=== PATIENT | female | born 1930 | race Caucasian/White ===

== ENCOUNTER 2017-02-11 06:56 | Day surgery (SDC) | payer MEDICARE ==
--- NOTE | 2017-01-22 07:57 | HP ---
HISTORY AND PHYSICAL: DATE OF SURGERY: 02/11/17 DATE OF OFFICE VISIT: 01/18/17 ATTENDING SURGEON: Earline Schumacher MD * (dictated by TERI Hendrix) PROCEDURE: Left carpal tunnel release. CHIEF COMPLAINT: Left hand pain, numbness, and tingling. HISTORY OF PRESENT ILLNESS: Ms. Garcia is an 86-year-old female following up today with continued complaints of left hand numbness and tingling involving the thumb, index, and long finger. An EMG nerve conduction study showed severe left carpal tunnel syndrome. She has elected to proceed with surgery. PAST MEDICAL HISTORY: Sleep apnea, diabetes, hypertension, AFib. PAST SURGICAL HISTORY: Hysterectomy, skin grafting, left knee arthroscopy, left total knee arthroplasty, right carpal tunnel release, right total hip arthroplasty, laparoscopic removal of the cyst, cataract removal, and left wrist synovectomy. CURRENT MEDICATIONS: 1. Lasix. 2. Lisinopril 5 mg every day. 3. Carvedilol 12.5 mg daily. 4. Eliquis 5 mg daily. 5. Folic acid. 6. Magnesium. 7. Calcium with vitamin D. 8. Spironolactone 25 mg daily. 9. Digoxin 125 mcg daily. 10. Metformin 750 mg twice a day. ALLERGIES: To PENICILLIN, FOSAMAX, BACTRIM, and CIPROFLOXACIN. FAMILY HISTORY: Of breast cancer. SOCIAL HISTORY: She is an 86-year-old female, she lives with her daughter. She does not smoke or use drugs. She uses alcohol occasionally. REVIEW OF SYSTEMS: A complete 14-point review of systems reviewed with the patient and is positive for diabetes. PHYSICAL EXAMINATION GENERAL: She is well developed, well nourished, in no acute distress. VITAL SIGNS: She stands 5 feet 5 inches tall, weighs 135 pounds. Her blood pressure is 127/76 and her heart rate is 60. HEENT: Normocephalic, atraumatic. NECK: Supple. No palpable nodes. PULMONARY: Lungs are clear to auscultation bilaterally. CARDIO: Regular rate and rhythm. Strong S1, S2. ABDOMEN: Soft, nontender, nondistended. NEUROLOGIC: She is alert and oriented x3. Cranial nerves II through XII are intact. MUSCULOSKELETAL: Left upper extremity, the skin is intact. There are no open wounds or abrasions. She has positive Tinel's at the left wrist. There is some mild thenar atrophy, diminished sensation to pinprick and light touch over the left thumb, index, long finger. She has 2+ distal radius pulses. ASSESSMENT AND PLAN: Ms. Garcia is an 86-year-old female with continued complaints of numbness and tingling of the left thumb, index, and long finger. EMG showed severe carpal tunnel syndrome. She has elected to proceed with a left carpal tunnel release, which is scheduled on 02/11/[address] Schumacher discussed the risks and benefits of the surgery at today's visit. All of her questions were answered. She will see Dr. Schumacher back in 10 to 14 days after the surgery. TERI HENDRIX [id number]/CPS #: [id number] MTDD
[~2017-02-11 06:56] MED LIST: Buffered Lidocaine 0.9% SYRIN* 5 ML/SYR SYRINGE INTRADERM ONE; Famotidine IV* 10 MG/ML 2 ML (20 mg) IV ONE
[2017-02-11] MEDS ORDERED: Buffered Lidocaine 0.9% SYRIN* 5 ML/SYR SYRINGE ONE (06:57)
[2017-02-11] MEDS ORDERED: Famotidine IV* 10 MG/ML 2 ML (20 mg) ONE (06:57)
[2017-02-11] MEDS ORDERED: Clindamycin 900 MG IVPREMIX(* 900 MG/50 ML SDV IV ONE (06:57)
[2017-02-11] MEDS ORDERED: Lidocaine 1% INJ* 10 MG/ML 30 ML SDV ONE (06:58)
[2017-02-11] MEDS ORDERED: Bupivacaine 0.5% SDV PF* 30 ML VIAL ONE (06:58)
[2017-02-11] MEDS ORDERED: fentaNYL* 50 MCG/ML 2 ML VIAL (100 MCG VIAL) ONE (08:13)
[2017-02-11] MEDS ORDERED: Propofol* 10 MG/ML 20 ML BTL IV PUSH ONE (08:13)
[2017-02-11] MEDS ORDERED: Dexamethasone IV* 4 MG/ML 1 ML (4 MG) ONE (08:13)
[2017-02-11] MEDS ORDERED: Ondansetron INJ* 2 MG/ML VIAL ONE (08:13)
[2017-02-11] MEDS ORDERED: Ketorolac INJ* 30 MG/ML 1 ML VIAL ONE (08:13)
[2017-02-11] MEDS ORDERED: Midazolam* 1 MG/ML 5 ML VIAL (5 MG) ONE (08:13)
[2017-02-11] MEDS ORDERED: Lidocaine 2% PF * 5 ML VIAL ONE (08:13)
[2017-02-11] MEDS ORDERED: DiMENhydriNATE IV* 50 MG/ML VIAL IV PUSH PRN (09:29)
[2017-02-11] MEDS ORDERED: Acetaminophen TAB* 325 MG PO PRN (09:29)
[2017-02-11 10:08] VITALS: BP 123/81
--- NOTE | 2017-02-12 08:36 | OP ---
DATE OF OPERATION: 02/11/17 [facility] DATE OF : 31 SURGEON: Earline Schumacher MD CHRONIC SPECIALIST: TERI Day. Ms. Cardenas did help throughout the procedure with preparation of the wrist, wound retraction, and wound closure. ANESTHESIOLOGIST: Dr. Mejia. ANESTHESIA: Low MAC and regional with 0.5% Marcaine. PRE-OP DIAGNOSIS: Left carpal tunnel syndrome at the wrist with median nerve compression. POST-OP DIAGNOSIS: Left carpal tunnel syndrome at the wrist with median nerve compression. OPERATIVE PROCEDURE: Left wrist open carpal tunnel release. ESTIMATED BLOOD LOSS: Less than 25 cc. COMPLICATIONS: None. SPECIMEN: None. BRIEF HISTORY/INDICATION: Ms. Garcia is an 86-year-old female with years of increasingly severe left wrist pain and hand numbness. She underwent EMG nerve conduction study that showed severe carpal tunnel syndrome at the wrist. She failed conservative treatment with wrist night splinting and activity modification. Due to significant pain and numbness in the median nerve distribution, she elected to undergo open carpal tunnel release at the left wrist. Informed consent was obtained from the patient. She understood the risks of the procedure included but were not limited to bleeding, infection, damage to nearby structures, continued pain, need for further surgery, stroke, heart attack, blood clot, and . She wished to proceed. INTRAOPERATIVE FINDINGS: Intraoperatively, the patient had fibrosed transverse carpal tunnel ligament with direct compression on the median nerve. No other abnormalities were encountered. DESCRIPTION OF PROCEDURE: Ms. Garcia is an 86-year-old female who was identified in the preanesthesia unit. Her left upper extremity was marked as the correct operative side. Informed consent was signed and placed in the chart. Patient was taken to the operating room and placed under low MAC anesthesia. Left upper extremity was prepped and draped in the usual sterile fashion. Preop time-out was made to correctly identify the patient's side and site. Appropriate perioperative antibiotics were given within one hour of incision. Six cc of 0.5% Marcaine was used for anesthesia right at the surgical site. Next, the tourniquet was inflated. Tourniquet time for this procedure was 5 minutes. A 15-blade was used to make a 3 cm incision along the thenar crease in line with the fourth metacarpal. Tenotomies were used to dissect down to the transverse palmar fascia. A 10-blade was used to incise the palmar fascia in line with the skin incision. Tenotomies were used to dissect down to the transverse carpal ligament. This was thickened and released in line with the skin incision using a 15-blade in a meticulous fashion. Median nerve was identified and clearly had been compressed by the transverse carpal ligament at this anatomic position. Tenotomies were used both proximally and distally to ensure that there was no further entrapment of the median nerve. The incision was copiously irrigated with sterile saline. Tourniquet was deflated at 5 minutes. The incision was closed using an interrupted 3-0 nylon suture in a vertical mattress fashion. Sterile Xeroform, 4x4's, and Webril were used to cover the incision. A volar plaster slab was placed with an Bhavin wrap over this. Patient's anesthesia was reversed without difficulty. She had full motion of her thumb and fingers after the procedure. She is discharged to home with followup in two weeks' time. [id number]/[facility] #: [id number] SHANELLE
== END 2017-02-11 10:31 | disposition home or self-care (01) ==
LOC: OR 06:56
PROVIDERS: ATTEND Orthopaedic Surgery Adult Reconstructive Orthopaedic Surgery
DX: G56.02 Carpal tunnel syndrome, left upper limb (principal); G47.30 Sleep apnea, unspecified; E11.9 Type 2 diabetes mellitus without complications; I10 Essential (primary) hypertension; I48.91 Unspecified atrial fibrillation; J44.9 Chronic obstructive pulmonary disease, unspecified; Z79.84 Long term (current) use of oral hypoglycemic drugs; Z79.01 Long term (current) use of anticoagulants; Z88.1 Allergy status to other antibiotic agents; Z88.0 Allergy status to penicillin; Z87.891 Personal history of nicotine dependence
CPT/HCPCS: J1100; J1885; J2001; J2250; J2405; J2704; J3010

== ENCOUNTER 2017-05-31 19:42 | Emergency (ER) | payer MEDICARE ==
[2017-05-31] MEDS ORDERED: Oxymetazoline 0.05% NASAL SPR* 15 ML BTL RIGHT NARE ONE (21:31)
--- NOTE | 2017-05-31 21:34 | ED ---
Throat Pain/Nasal Congestion - HPI Summary HPI Summary: 87F presents with bleeding from right nares for an hour. She states it stopped on the way here and hasn't bleed since for two hours. She is on eliguis. She denies any recent trauma. She denies any blood coming out of other nostril. She states was two large blood clots came out. She denies any fever. - History of Current Complaint Chief Complaint: EDEpistaxis Time Seen by Provider: 05/31/17 21:16 - Allergies/Home Medications Allergies/Adverse Reactions: Allergies Allergy/AdvReac Type Severity Reaction Status Date / Time Alendronate [From Fosamax] Allergy SEVERE Verified 05/31/17 19:50 UPSET Ciprofloxacin Allergy Unknown Verified 05/31/17 19:50 Reaction Details Penicillins [PCN] Allergy Unknown Verified 05/31/17 19:50 Reaction Details Sulfamethoxazole Allergy HIGH FEVER Verified 05/31/17 19:50 w/Trimethoprim [From Bactrim] LOBSTER Allergy SEVERE N/V Uncoded 05/31/17 19:50 PMH/Surg Hx/FS Hx/Imm Hx Endocrine/Hematology History: Reports: Hx Diabetes - TYPE II - ON ORAL MEDICATION FOR, Hx Anemia Cardiovascular History: Reports: Hx Hypertension - ON MEDICATION FOR, 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, Other Cardiovascular Problems/Disorders - ATRIAL FIBRILLATION/ RIGHT BUNDLE BRANCH BLOCK Comment Only: Hx Congestive Heart Failure - RIGHT HEART FAILURE Respiratory History: Reports: Hx Sleep Apnea - USES A DENTAL APPLIANCE Musculoskeletal History: Reports: Hx Arthritis - "ALL OVER", Hx Orthopedic Injury - L knee replacement June 2014, Hx Tendonitis - HISTORY OF ELBOW, Other Musculoskeletal History - carpal tunnel r wrist, Sensory History: Reports: Hx Cataracts - BILATERAL, Hx Contacts or Glasses - GLASSES Denies: Hx Hearing Aid Opthamlomology History: Reports: Hx Cataracts - BILATERAL, Hx Contacts or Glasses - GLASSES Psychiatric History: Reports: Hx Anxiety - AFTER ANESTHESIA X 1 - Cancer History Cancer Type, Location and Year: cervical ca - Surgical History Surgery Procedure, Year, and Place: [id number]- SKIN GRAFTS- [facility]. BONE GRAFT LEFT LOWER [id number]. SKIN GRAFTS- [id number]. REMOVAL OF CYST FROM ABDOMEN - [id number]. CARPAL TUNNEL RELEASE RIGHT [id number]. 04/14- [place] [place] [facility] [id number] WRIST AT [facility]. L knee replacement- 06/2014 Hx Anesthesia Reactions: Yes - STATES FELT VERY TENSE-AFTER SURGERYFELT LIKE THROAT CLOSING UP - Immunization History Date of Influenza Vaccine: 2013 Infectious Disease History: No Infectious Disease History: Denies: Traveled Outside the [place] in Last 30 Days - Family History Known Family History: Positive: Hypertension - Social History Alcohol Use: Rare Substance Use Type: Reports: None Hx Tobacco Use: No Smoking Status (MU): Former Smoker Amount Used/How Often: <1PPD X 15 YEARS Have You Smoked in the Last Year: No Review of Systems Negative: Fever Positive: Epistaxis Negative: Chest Pain Negative: Shortness Of Breath All Other Systems Reviewed And Are Negative: Yes Physical Exam Triage Information Reviewed: Yes Vital Signs On Initial Exam: Initial Vitals Temp Pulse Resp BP Pulse Ox 99.0 F 69 18 146/77 98 05/31/17 19:46 05/31/17 19:46 05/31/17 19:46 05/31/17 19:46 05/31/17 19:46 Vital Signs Reviewed: Yes Appearance: Positive: Well-Appearing Skin: Positive: Warm, Dry Head/Face: Positive: Normal Head/Face Inspection Eyes: Positive: Normal, EOMI, AMILCAR, Conjunctiva Clear ENT: Positive: Pharynx normal, TMs normal, Other - no active bleeding right nares, Respiratory/Lung Sounds: Positive: Clear to Auscultation, Breath Sounds Present Cardiovascular: Positive: Normal, RRR Musculoskeletal: Positive: Normal Neurological: Positive: Normal Psychiatric: Positive: Normal Diagnostics - Vital Signs Vital Signs Temp Pulse Resp BP Pulse Ox 05/31/17 19:46 99.0 F 69 18 146/77 98 - Laboratory Lab Statement: Any lab studies that have been ordered have been reviewed, and results considered in the medical decision making process. EENT Course/Dx - Course Course Of Treatment: 87F presents with bleeding from right nares for an hour. She states it stopped on the way here and hasn't bleed since for two hours. She is on eliguis. She denies any recent trauma. She denies any blood coming out of other nostril. She states was two large blood clots came out. She denies any fever. on exam no active bleeding. see a capillary that could cauterize but patient states would just like to go and return if bleed returns. discharged with afrin that can place in nose if bleeding return to try and stop it on own. gave referral to ENT as patient that follow up with as has had cautery done in past. patient understand and agrees with plan. - Differential Diagnoses Differential Diagnoses: Epistaxis, URI/Bronchitis - Diagnoses Provider Diagnoses: Epistaxis Discharge - Discharge Plan Condition: Good Disposition: HOME Patient Education Materials: Nosebleed (ED) Referrals: Barbara Cordova MD [Primary Care Provider] - Yoni Hartman MD [Medical Doctor] - Additional Instructions: Place afrin on cotton ball and place in nares for 20 mins along with holding pressure, if bleeding does not stop return to ED Follow up with ENT Return to ED if develop any new or worsening symptoms
[2017-05-31 22:04] VITALS: BP 121/60
== END 2017-05-31 22:03 | disposition home or self-care (01) ==
LOC: ED 19:42
DX: R04.0 Epistaxis (principal); E11.9 Type 2 diabetes mellitus without complications; Z79.84 Long term (current) use of oral hypoglycemic drugs; I10 Essential (primary) hypertension; I48.91 Unspecified atrial fibrillation; Z79.01 Long term (current) use of anticoagulants; I45.10 Unspecified right bundle-branch block; Z96.652 Presence of left artificial knee joint; Z88.1 Allergy status to other antibiotic agents; Z88.0 Allergy status to penicillin; Z88.2 Allergy status to sulfonamides; Z87.891 Personal history of nicotine dependence
CPT/HCPCS: 99281; A9270-GY

== ENCOUNTER 2019-08-01 17:07 | Emergency (ER) | payer MEDICARE ==
--- OUTSIDE RECORDS SUMMARY | 2019-08-01 17:29 | XMS REPORT | Summary of Care ---
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 Reason for Visit Reason Comments Follow Up 4 (now 8)month follow up on DM, HTN & Afib Diabetes Hypertension Atrial Fibrillation Encounter Details Date Type Department Care Team Description 06/23/2019 Office Visit [place] [facility] Barbara Cordova MD Diabetes mellitus without complication (HCC) (Primary Dx); Medicine [address] Lipid disorder; [address] [place] [address] Essential hypertension; [place] [address] Permanent atrial fibrillation; [phone] Breast neoplasm, Tis (DCIS), left Allergies Active Allergy Reactions Severity Noted Date Comments Sulfamethoxazole Dermatologic Reaction 08/30/2014 Rash / fever/ W/Trimethoprim diarrhea Ciprofloxacin-Ciproflox Unknown Reaction 09/06/2017 Thinks it made Hcl her sick Fosamax GI Reaction 06/07/2013 Stomach ache - general malaise Penicillin G Potassium 10/12/2007 documented as of this encounter (statuses as of 06/23/2019) Medications Medication Sig Dispensed Refills Start Date End Date Status magnesium oxide Take 1 Tab by 0 Active (MAG-OX) 400 MG PO mouth DAILY. TABS CALCIUM + D PO Take 1 Tab by 0 Active mouth DAILY. Multiple Take by 0 Active Vitamins-Minerals mouth TWICE (PRESERVISION AREDS DAILY. PO) Vitamin Mixture Take by 0 Active (MARK-C PO) mouth DAILY. anastrozole Take 1 Tab by 90 Tab 3 04/08/2018 Active (ARIMIDEX) 1 MG mouth DAILY. Oral Tab ELIQUIS 5 MG Oral TAKE ONE 180 Tab 3 07/12/2018 Active Tab TABLET BY MOUTH TWICE DAILY foliC acid 1 MG TAKE 1 TABLET 90 Tab 3 08/08/2018 Active Oral BY MOUTH ONCE TabIndications: DAILY Preventative health care lisinopril TAKE 1 TABLET 90 Tab 3 01/09/2019 Active (PRINIVIL, ZESTRIL) BY MOUTH ONCE 5 MG Oral DAILY TabIndications: Paroxysmal atrial fibrillation (HCC) metFORMIN HCL 750 Take 1 Tab by 180 Tab 3 02/10/2019 Active MG Oral TABLET SR mouth TWO 24 HRIndications: TIMES DAILY Diabetes mellitus BEFORE MEALS. without complication (HCC) carvedilol (COREG) Take 1 Tab by 180 Tab 3 04/10/2019 Active 12.5 MG Oral mouth TWICE TabIndications: DAILY. Essential hypertension torsemide (DEMADEX) TAKE 2 360 Tab 3 05/08/2019 Active 10 MG Oral TABLETS BY TabIndications: MOUTH TWICE Right ventricular DAILY IN THE enlargement MORNING AND AT NOON Glucose Blood 1 Each by 200 Strip 3 06/06/2019 Active (FREESTYLE TEST Topical route STRIPS) In Vitro TWICE DAILY. StripIndications: Diabetes mellitus without complication (HCC) spironolactone Take 1 Tab by 90 Tab 3 06/12/2019 Active (ALDACTONE) 25 MG mouth DAILY. Oral TabIndications: Right heart failure (HCC) Lancets (1ST TIER Use bid 100 Each 0 06/19/2019 Active UNILET COMFORTOUCH) Does not apply MiscIndications: Diabetes mellitus without complication (HCC) Semaglutide,0.25 or Inject 1 Appl 1 Pre-filled 3 06/23/2019 Active 0.5MG/DOS, beneath the Pen Syringe (OZEMPIC, 0.25 OR skin EVERY 7 0.5 MG/DOSE,) 2 DAYS. MG/1.5ML increast to Subcutaneous 0.5 mg after Solution 1 month Pen-injectorIndicat ions: Diabetes mellitus without complication (HCC) metFORMIN HCL 750 TAKE 1 TABLET 180 Tab 3 05/08/2019 06/23/19 Discontinued MG Oral TABLET SR BY MOUTH 20 24 HR TWICE DAILY documented as of this encounter (statuses as of 06/23/2019) Active Problems Problem Noted Date Breast neoplasm, Tis (DCIS), left 08/17/2017 Overview: Added automatically from request for surgery [id number] Current use of terminal operator anticoagulation 07/19/2017 YOSVANY (obstructive sleep apnea) 04/09/2016 Overview: Wearing dental appliance Aspiration into respiratory tract 11/15/2015 Non-rheumatic tricuspid valve insufficiency 08/19/2015 Liver nodule 06/24/2015 Overview: 02/02 - Abnormal appearance of liver Diabetes mellitus without complication 06/24/2015 Overview: Care plan done 10/03/2014 Right heart failure 02/18/2015 HTN (hypertension) 01/14/2015 Macular degeneration 08/01/2012 Overview: Both eyes. 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 Replaced inactive diagnosis Varicose veins of legs 10/12/2007 Chronic Right Bundle Branch Block 10/12/2007 History of Carpal Tunnel Syndrome 10/12/2007 Overview: Patient had surgery. Osteopenia 10/12/2007 documented as of this encounter (statuses as of 06/23/2019) Immunizations Name Administration Dates Next Due Influenza (IM) Preservative Free 03/23/2014, 04/03/2013, 05/09/2012, 03/26/2009, 04/05/2008 Influenza Vaccine High Dose 03/09/2019, 03/23/2018, 04/11/2017, 03/09/2016, 03/22/2015 Influenza Vaccine Whole 04/05/2006 PNEUMOCOCCAL POLYSACCHARIDE VACCINE 03/23/2014 Pneumococcal Conjugate(13 Valent) 05/11/2016 TDAP Vaccine 02/03/2010 documented as of this encounter Social History Tobacco Use Types Packs/Day Years Used Date Former Smoker Quit: 06/21/1964 Smokeless Tobacco: Never Used Alcohol Use Drinks/Week oz/Week Comments Yes 0 Standard drinks or equivalent 0.0 RARE Sex Assigned at Date Recorded Not on file Job Start Date Occupation Industry Not on file Not on file Not on file Travel History Travel Start Travel End No recent travel history available. documented as of this encounter Last Filed Vital Signs Vital Sign Reading Time Taken Comments Blood Pressure 104/84 06/23/2019 3:22 PM EST Pulse 77 06/23/2019 3:22 PM EST Temperature - - Respiratory Rate - - Oxygen Saturation 95% 06/23/2019 3:22 PM EST Inhaled Oxygen Concentration - - Weight 68.4 kg (150 lb 14.4 oz) 06/23/2019 3:22 PM EST Height 167.6 cm (5' 6") 06/23/2019 3:22 PM EST Body Mass Index 24.36 06/23/2019 3:22 PM EST documented in this encounter Patient Instructions Patient InstructionsBarbara Cordova MD - 06/23/2019 3:00 PM ESTPlan Add ozempic on to the metformin Start 0.25 mg for 4 weeks then 0.5 mg - continue on 0.5mg util we meet again - You are eating too many carbs - Kick the carbs out of Your diet - documented in this encounter Progress Notes Barbara Cordova MD - 06/23/2019 3:00 PM EST NAME:Marci Garcia [birth year] ENC Date: 06/23/2019 CC: Chief Complaint Patient presents with Follow Up 4 (now 8)month follow up on DM, HTN & Afib Diabetes Hypertension Atrial Fibrillation Marci Garcia is a 89-y.o. female Accompanied by daughter Doing well Denies any shortness of breath / pedal edema / digestive problems Here for interval follow up Of diabetes 2 metformin daily only - Has been eating bread / other carbs- 2. htn 3. Chronic afib Current Outpatient Medications Medication Sig anastrozole (ARIMIDEX) 1 MG Oral Tab Take 1 Tab by mouth DAILY. CALCIUM + D PO Take 1 Tab by mouth DAILY. carvedilol (COREG) 12.5 MG Oral Tab Take 1 Tab by mouth TWICE DAILY. ELIQUIS 5 MG Oral Tab TAKE ONE TABLET BY MOUTH TWICE DAILY foliC acid 1 MG Oral Tab TAKE 1 TABLET BY MOUTH ONCE DAILY Glucose Blood (FREESTYLE TEST STRIPS) In Vitro Strip 1 Each by Topical route TWICE DAILY. Lancets (1ST TIER UNILET COMFORTOUCH) Does not apply Misc Use bid lisinopril (PRINIVIL, ZESTRIL) 5 MG Oral Tab TAKE 1 TABLET BY MOUTH ONCE DAILY magnesium oxide (MAG-OX) 400 MG PO TABS Take 1 Tab by mouth DAILY. metFORMIN HCL 750 MG Oral TABLET SR 24 HR Take 1 Tab by mouth TWO TIMES DAILY BEFORE MEALS. Multiple Vitamins-Minerals (PRESERVISION AREDS PO) Take by mouth TWICE DAILY. Semaglutide,0.25 or 0.5MG/DOS, (OZEMPIC, 0.25 OR 0.5 MG/DOSE,) 2 MG/ 1.5ML Subcutaneous Solution Pen-injector Inject 1 Appl beneath the skin EVERY 7 DAYS. increast to 0.5 mg after 1 month spironolactone (ALDACTONE) 25 MG Oral Tab Take 1 Tab by mouth DAILY. torsemide (DEMADEX) 10 MG Oral Tab TAKE 2 TABLETS BY MOUTH TWICE DAILY IN THE MORNING AND AT NOON Vitamin Mixture (MARK-C PO) Take by mouth DAILY. No current facility-administered medications for this visit. Patient Active Problem List Diagnosis Date Noted Breast neoplasm, Tis (DCIS), left 08/17/2017 Priority: High Added automatically from request for surgery [id number] Diabetes mellitus without complication (HCC) 06/24/2015 Priority: High Care plan done 10/03/2014 Right heart failure (HCC) 02/18/2015 Priority: High Atrial fibrillation 10/12/2007 Priority: High Following with Dr Gilbert - Enlarged RV and significant TRICUSPID REGURITATION -etiology? Sleep apnea vs other Acquired absence of uterus 10/21/2007 Priority: Low Cancer in situ; ovaries removed Current use of long-term anticoagulation 07/19/2017 YOSVANY (obstructive sleep apnea) 04/09/2016 Wearing dental appliance Aspiration into respiratory tract 11/15/2015 Non-rheumatic tricuspid valve insufficiency 08/19/2015 Liver nodule 06/24/201502/02 - Abnormal appearance of liver HTN (hypertension) 01/14/2015 Macular degeneration 08/01/2012 Both eyes. 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 Replaced inactive diagnosis Varicose veins of legs 10/12/2007 Chronic Right Bundle Branch Block 10/12/2007 History of Carpal Tunnel Syndrome 10/12/2007 Patient had surgery. Osteopenia 10/12/2007 Family History Problem Relation Age of Onset Heart Mother Cancer Father Breast Cancer Sister late 70s Breast Cancer Daughter late 30s No cardiopulmonary symptoms No upper or lower GI complaints No urinary tract symptoms. No bruising/ bleeding. No neurological complaints . No insomnia.+ . Social History Tobacco Use Smoking status: Former Smoker Last attempt to quit: 06/21/1964 Years since quittin.0 Smokeless tobacco: Never Used Substance Use Topics Alcohol use: Yes Alcohol/week: 0.0 standard drinks Comment: RARE Drug use: No Results for orders placed or performed in visit on 06/12/19 LDL, DIRECT Result Value Ref Range Direct Ldl-Cholesterol 91 <100 MG/DL Narrative Normal Ranges: <100 mg/dl Optimal 100-129 mg/dl Near Optimal 130-159 mg/dl Borderline High 160-189 mg/dl High >189 mg/dl Very High COMPREHENSIVE METABOLIC PANEL Result Value Ref Range Sodium 133 (L) 134 - 145 mmol/L Potassium 4.4 3.5 - 5.1 mmol/L Chloride 92 (L) 98 - 107 mmol/L CO2 30 22 - 30 mmol/L Calcium 9.8 8.3 - 10.1 mg/dl Albumin 4.4 3.5 - 5.0 g/dl BUN 25 (H) 7 - 17 mg/dl Creatinine 0.9 0.7 - 1.2 mg/dl Glucose 298 (H) 70 - 99 mg/dl Total Protein 8.2 6.3 - 8.2 g/dl Total Bilirubin 1.2 (H) 0.0 - 1.1 MG/DL AST 31 15 - 46 U/L ALT 21 9 - 52 U/L Alkaline Phosphatase 60 40 - 150 U/L eGFR 59 See Interpretation Below ml/min/1.73ml Sq BUN/Creatinine Ratio 28 (H) 6 - 22 RATIO Anion Gap 11 3 - 11 mmol/L A/G Ratio 1.2 0.8 - 2.0 ratio GLYCOHEMOGLOBIN A1C Result Value Ref Range Glycohemoglobin A1C 8.5 (H) <=5.6 % OBJECTIVE: BP 104/84 | Pulse 77 | Ht 5' 6" (1.676 m) | Wt 150 lb 14.4 oz (68.4 kg) | SpO2 95% | BMI 24.36 kg/m . Lungs clear - Irregular but rate controlled hr Ankles - no edema - A/P ICD-9-CM ICD-10-CM 1. Diabetes mellitus without complication (HCC) 250.00 E11.9 MICROALBUMIN, RANDOM URINE W/ CREATININE MICROALBUMIN, RANDOM URINE W/ CREATININE MICROALBUMIN, RANDOM URINE W/ CREATININE BASIC METABOLIC PANEL GLYCOHEMOGLOBIN A1C Semaglutide,0.25 or 0.5MG/DOS, (OZEMPIC, 0.25 OR 0.5 MG/DOSE,) 2 MG/1.5ML Subcutaneous Solution Pen-injector 2. Lipid disorder 272.9 E78.9 LDL, DIRECT 3. Essential hypertension 401.9 I10 4. Permanent atrial fibrillation 427.31 I48.21 5. Breast neoplasm, Tis (DCIS), left 233.0 D05.12 Patient Instructions Plan Add ozempic on to the metformin Start 0.25 mg for 4 weeks then 0.5 mg - continue on 0.5mg util we meet again - You are eating too many carbs - Kick the carbs out of Your diet - AUTHOR: Barbara Cordova MD 16:04 06/23/2019 documented in this encounter Plan of Treatment Date Type Specialty Care Team Description 07/27/2019 Office Visit Cardiology Ko Gilbert MD [address] [place] [id number] 08/31/2019 Appointment Infusion Therapy 08/31/2019 Appointment Infusion Therapy 08/31/2019 Office Visit Hematology and Oncology Dionne Olivas, [facility] [address] [address] 09/18/2019 Appointment Radiology 10/09/2019 Office Visit General Surgery Grey Linda MD [address] [place] [address] Name Type Priority Associated Diagnoses Date/Time MICROALBUMIN, RANDOM Lab Routine Diabetes mellitus without 06/23/2019 1: 30 PM URINE W/ CREATININE complication (HCC) EST Name Type Priority Associated Diagnoses Order Schedule MICROALBUMIN, RANDOM URINE Lab Routine Diabetes mellitus Expected: 2019 W/ CREATININE without complication (Approximate), (HCC) Expires: 12/20/2019 MICROALBUMIN, RANDOM URINE Lab Routine Diabetes mellitus 1 Occurrences starting W/ CREATININE without complication 06/23/2019 until (HCC) 12/20/2019 BASIC METABOLIC PANEL Lab Routine Diabetes mellitus Expected: 06/23/2019 without complication (Approximate), (HCC) Expires: 12/20/2019 GLYCOHEMOGLOBIN A1C Lab Routine Diabetes mellitus Expected: 06/23/2019 without complication (Approximate), (HCC) Expires: 12/20/2019 LDL, DIRECT Lab Routine Lipid disorder Expected: 06/23/2019 (Approximate), Expires: 12/20/2019 Health Maintenance Due Date Last Done Comments MEDICARE ANNUAL WELLNESS 03/22/2016 03/22/2015 VISIT HEMOGLOBIN A1C 09/11/2019 06/12/2019, 02/03/2019, 09/28/2018, Additional history exists DTaP/Tdap/Td Vaccines (2 - 02/04/2020 02/03/2010 Tdap) FOOT EXAM 02/11/2020 02/10/2019, 02/10/2019, 06/06/2018, Additional history exists DEPRESSION SCREENING 02/18/2020 02/17/2019 FALL RISK ASSESSMENT 06/23/2020 06/23/2019, 06/23/2019 HIV SCREENING 06/23/2020 Postponed from 1946 (Patient refused) ZOSTER IMMUNIZATION SERIES 06/23/2020 Postponed from (1 of 2) 1981 (Vaccine not available) Diabetic Eye Exam 04/17/2021 04/17/2019, 09/09/2018, 09/09/2018, Additional history exists PNEUMOCOCCAL 65+YRS Completed 05/11/2016, 03/23/2014 INFLUENZA VACCINE Completed 03/09/2019, 03/23/2018, 04/11/2017, Additional history exists HEPATITIS A IMMUNIZATION Aged Out No longer eligible SERIES based on patient's age to complete this topic HPV IMMUNIZATION SERIES Aged Out No longer eligible based on patient's age to complete this topic MENINGOCOCCAL VACCINE IMM Aged Out No longer eligible based on patient's age to complete this topic documented as of this encounter Goals Goal Patient Goal Associated Recent Patient-Stated? Author Type Problems Progress Blood Pressure Blood Pressure 104/84 No Crepet, < 140/90 (06/23/2019 MD Barbara 3:22 PM EST) Note: This is an individualized treatment (blood pressure) goal for Marci Garcia: Displayed above (on the left) is your goal for blood pressure control. Your most recent blood pressure is also shown above, on the right. You should try to achieve blood pressures that are lower than your goal listed above (on the left). Weight increase vs. 18 mo CHF 16.3 (06/23/2019 3:22 PM EST) Barbara Young MD min (lbs) < 5 Note: This is an individualized treatment (congestive heart failure, CHF) goal for Marci Garcia: Displayed above (on the right) is how many pounds you are in excess of your lowest weight over the past 18 months. Note that lower numbers are better. Excessive weight gain often indicates fluid reten tion and worsening heart failure. You should contact your doctor immediately if the above number is too high (above your goal, the number on the left). Diabetes < 7.0 Diabetes 8.5 (06/12/2019 2:10 PM EST) Barbara Young MD Note: Diabetes Care Plan According to current 2014 ADA guidelines the patient A1C goal is less than 7. The patient's last A1C was Lab Results Lab Results Value Date/Time GLYCO 6.7 09/26/2014 0859 GLYCO 6.1 06/01/2013 1105 The patient is:at goal . As your provider, it is important that I advise you regarding: your current medications and help you with any challenges you may face taking your medications as directed (ex. instructions, cost, side effects, and interactions). Important lifestyle changes:exercise, diet, glucose monitoring and medication compliance your clinical goals and how you can achieve success:weight reduction, exercise plan, diet management and glucose monitoring medication management: N/A diet only patient education/self-management tools provided: Yes To successfully manage my Diabetes I will: have lab work every six months if my previous A1c was 7 or less. If my results were greater than 7, I will have lab work every three months. My goal is to control my diabetes by keeping A1c below 7.0 take medications every day as prescribed by my healthcare provider and if unable to take them I will discuss with my provider. exercise/walk 45 minutes 4 day(s) per week. If I experience chest pain, chest tightness, or shortness of breath, I will seek medical attention immediately. check feet daily. If sores or irritation are noticed, will seek medical attention. follow a low carbohydrate and low fat diet. My goal is an LDL (bad cholesterol) number less than 100 when I have my routine lab work. check blood sugar as instructed and will call my healthcare provider if the results are consistently below 70 or above 300. I will monitor for symptoms of low blood sugar (feeling faint, dizzy, lig htheaded, jittery, sweaty, or hungry), if symptoms are noticed, I will eat or drink something (glucose tabs, orange juice, candy) to help raise sugar. record my blood sugar results (including dextrose sticks). Managed Objectse is safe and secure way for you to do this in your medical record online. try to obtain an ideal body weight. My recent weight was Weight: 144 lb ( 65.318 kg). My weight loss goal for my next office visit is stable weight . to prevent kidney problems common to people with diabetes I will complete a yearly Microalbumin to check for protein in urine. I will talk with my healthcare provider about medications to prevent diabetic renal disease. to prevent diabetic retinopathy I will see an eye doctor yearly. A yearly dilated eye exam helps prevent blindness. if currently smoking, will discuss how to quit smoking with my healthcare provider and work towards quitting. Glycohemoglobin A1c < 7.0 Diabetes 8.5 (06/12/2019 2:10 PM No Barbara Cordova MD EST) Note: This is an individualized treatment (diabetes control, HgbA1C) goal for Marci Garcia: Displayed above is your progress towards your HgbA1C goal. Your goal is shown above (on the left); your most recent HgbA1C is shown on the right. Note that lower numbers are better. Keep immunizations current Lifestyle Barbara Young MD Note: This is an individualized lifestyle goal for Marci Garcia: Please be sure to keep up-to-date on recommended immunizations. For example, this would include a yearly influenza vaccine. Immunization status can be seen by looking at the Health Maintenance sections of your [employer], Plan of Care, and any After Visit Summaries. Consume a [id number] diet Lifestyle Barbara Young MD Note: This is an individualized lifestyle goal for Marci Garcia: Please do not add additional salt to your food. Additional salt may lead to fluid retention and worsen your congestive heart failure. Take all prescribed medications as directed Self-management Barbara Young MD Note: This is an individualized self-management goal for Marci Garcia: Please take all prescribed medications as directed. 1. Do not skip doses. If you cannot afford your medications, talk with your doctor. 2. Use a pill reminder system such as a pill box if needed. Your pharmacist can help you with this. 3. Contact your Pharmacy 5 days before your medication runs out. If you cannot take your medications for any reasons, talk with your doctor. 4. Please bring all of your medication bottles and inhalers (or a list of all your medications/inhalers) with you to every visit. Potential barriers to meeting all of your care plan goals will continue to be addressed on an ongoing basis. Check your weight daily Self-management Barbara Young MD Note: This is an individualized self-management goal for Marci Garcia: Please check your weight daily. Refer to the accompanying CHF treatment goal and call your doctor immediately for further instructions on how to respond to unexpected weight gain. documented as of this encounter Results Not on filedocumented in this encounter Visit Diagnoses Diagnosis Diabetes mellitus without complication (HCC) Type II or unspecified type diabetes mellitus without mention of complication, not stated as uncontrolled Lipid disorder Unspecified disorder of lipoid metabolism Essential hypertension Unspecified essential hypertension Permanent atrial fibrillation Atrial fibrillation Breast neoplasm, Tis (DCIS), left documented in this encounter Insurance Payer Benefit Plan / Subscriber ID Effective Dates Phone Address Type Group [employer] EX[employer] xxxxxxxxxxxx Effective for [employer] MEDICARE BLUE all dates PPO ([phone]) Guarantor Name Account Type Relation to Date of Phone Billing Patient Address Marci aGrcia Personal/Family 1930 [address] (Home) [place], [place] [phone] [id number] (Work) documented as of this encounter
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
--- NOTE | 2019-08-01 18:59 | ED ---
Adult Trauma - HPI Summary HPI Summary: Patient complains of laceration to right eyebrow status post mechanical fall today. Positive head injury, denies LOC, HILL, vision change, N/V, neck pain, dizziness, imbalance, altered mental status. Patient on Eliquis. Denies fever , cough, sore throat, CP, SOB, N/V/V abdominal pain, change in urine, change in BM. Medical history is DM, HTN, HDL. - History of Current Complaint Chief Complaint: EDHeadInjury Stated Complaint: FALL-HEAD AND FACIAL INJURY PER PT Time Seen by Provider: 08/01/19 18:56 Hx Obtained From: Patient, Family/Employee Relations Administrator Mechanism of Injury: Fall Ambulatory at the Scene: Yes Loss of Consciousness: no loss of consciousness Onset/Duration: Started Hours Ago Onset of Pain: Immediate Onset Severity: Mild Current Severity: Mild Pain Intensity: 2 Pain Scale Used: 0-10 Numeric Location: Head Character: Dull Aggravating Factor(s): Nothing Alleviating Factor(s): Nothing Associated Signs & Symptoms: Positive: Negative - Allergy/Home Medications Allergies/Adverse Reactions: Allergies Allergy/AdvReac Type Severity Reaction Status Date / Time MS Alendronate [From Fosamax] Allergy SEVERE Verified 05/31/17 19:50 UPSET MS Ciprofloxacin Allergy Unknown Verified 05/31/17 19:50 [Ciprofloxacin] Reaction Details MS Penicillins [PCN] Allergy Unknown Verified 05/31/17 19:50 Reaction Details MS Sulfamethoxazole Allergy HIGH FEVER Verified 05/31/17 19:50 w/Trimethoprim [From Bactrim] Home Medications: Home Medications Acetaminophen [Acetaminophen Extra Strength] 1,000 mg PO BEDTIME PRN 08/01/19 [ History Confirmed 08/01/19] Anastrozole (NF) [Arimidex (NF)] 1 mg PO DAILY 08/01/19 [History Confirmed 08/01] Ascorbate Calcium/Bioflavonoid [Heather-C 1,000 mg Tablet] 1 tab PO DAILY [History Confirmed 08/01/19] Multivitamins/Minerals TAB* [Theragran/minerals TAB*] 1 tab PO DAILY 08/01/19 [ History Confirmed 08/01/19] Semaglutide [Ozempic] 0.25 mg SUBCUT WEEKLY 08/01/19 [History Confirmed 08/01/19 ] Torsemide TAB* [Demadex*] 20 mg PO BID 08/01/19 [History Confirmed 08/01/19] PMH/Surg Hx/FS Hx/Imm Hx Endocrine/Hematology History: Reports: Hx Diabetes - TYPE II - ON ORAL MEDICATION FOR, Hx Anemia Cardiovascular History: Reports: Hx Hypertension - ON MEDICATION FOR, 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, Other Cardiovascular Problems/Disorders - ATRIAL FIBRILLATION/ RIGHT BUNDLE BRANCH BLOCK Comment Only: Hx Congestive Heart Failure - RIGHT HEART FAILURE Respiratory History: Reports: Hx Sleep Apnea - USES A DENTAL APPLIANCE Musculoskeletal History: Reports: Hx Arthritis - "ALL OVER", Hx Orthopedic Injury - L knee replacement June 2014, Hx Tendonitis - HISTORY OF ELBOW, Other Musculoskeletal History - carpal tunnel r wrist, Sensory History: Reports: Hx Cataracts - BILATERAL, Hx Contacts or Glasses - GLASSES Denies: Hx Hearing Aid Opthamlomology History: Reports: Hx Cataracts - BILATERAL, Hx Contacts or Glasses - GLASSES EENT History: Denies: Hx Deafness Psychiatric History: Reports: Hx Anxiety - AFTER ANESTHESIA X 1 - Cancer History Cancer Type, Location and Year: cervical ca breast ca - Surgical History Surgery Procedure, Year, and Place: [id number]- SKIN GRAFTS- [place]. BONE GRAFT LEFT LOWER [id number]. SKIN GRAFTS- [id number]. REMOVAL OF CYST FROM ABDOMEN - [id number]. CARPAL TUNNEL RELEASE RIGHT [id number]. 10/02- BILATERAL CATARACT REMOVAL-[facility] [place]. [id number] WRIST AT [place]. L knee replacement- 06/2014 Hx Anesthesia Reactions: Yes - STATES FELT VERY TENSE-AFTER SURGERYFELT LIKE THROAT CLOSING UP - Immunization History Date of Influenza Vaccine: 2013 Infectious Disease History: No Infectious Disease History: Denies: Traveled Outside the [place] in Last 30 Days - Family History Known Family History: Positive: Hypertension - Social History Alcohol Use: None Substance Use Type: Reports: None Hx Tobacco Use: No Smoking Status (MU): Former Smoker Amount Used/How Often: <1PPD X 15 YEARS Have You Smoked in the Last Year: No Review of Systems Constitutional: Negative Eyes: Negative ENT: Negative Cardiovascular: Negative Respiratory: Negative Gastrointestinal: Negative Genitourinary: Negative Musculoskeletal: Negative Skin: Other Neurological/Mental Status: Negative Psychological: Normal All Other Systems Reviewed And Are Negative: Yes Physical Exam - Summary Physical Exam Summary: Laceration right eyebrow. Neurological exam normal. EOMI. No evidence of trauma to mouth, face, head, neck. Patient moves all 4 extremities freely. Abdomen soft nontender. Triage Information Reviewed: Yes Vital Signs On Initial Exam: Initial Vitals Temp Pulse Resp BP Pulse Ox 97.9 F 79 18 143/94 97 08/01/19 17:14 08/01/19 17:14 08/01/19 17:14 08/01/19 17:14 08/01/19 17:14 Vital Signs Reviewed: Yes Appearance: Positive: Well-Appearing Skin: Positive: Warm Head/Face: Positive: Normal Head/Face Inspection Eyes: Positive: Normal Dental: Negative: Dental Fracture @, Bleeding Neck: Positive: Supple Respiratory/Lung Sounds: Positive: Clear to Auscultation Cardiovascular: Positive: Normal Abdomen Description: Positive: Nontender Musculoskeletal: Positive: Normal Neurological: Positive: Normal Psychiatric: Positive: Normal AVPU Assessment: Alert - Issa Coma Scale Best Eye Response: 4 - Spontaneous Best Motor Response: 6 - Obeys Commands Best Verbal Response: 5 - Oriented Coma Scale Total: 15 Procedures - Sedation Patient Received Moderate/Deep Sedation with Procedure: No - Laceration/Wound Repair 1 Location: face Description: Linear Length, Depth and Shape: 2cm x .5 cm Betadine Prep?: No Irrigated w/ Saline (ccs): 300 Laceration/Wound Explored: clean Closure: Skin Adhesive, SteriStrips Debridement: minimal Number of Sutures: 0 Layer Closure?: No Sterile Dressing Applied?: No Diagnostics - Vital Signs Vital Signs Temp Pulse Resp BP Pulse Ox 08/01/19 17:14 97.9 F 79 18 143/94 97 - Laboratory Lab Statement: Any lab studies that have been ordered have been reviewed, and results considered in the medical decision making process. Adult Trauma Course/Dx - Course Course Of Treatment: Patient complains of laceration to right eyebrow status post mechanical fall today. Positive head injury, denies LOC, HILL, vision change , N/V, neck pain, dizziness, imbalance, altered mental status. Patient on Eliquis. Denies fever, cough, sore throat, CP, SOB, N/V/V abdominal pain, change in urine, change in BM. Medical history is DM, HTN, HDL. Vital signs within normal limits. CT brain negative. CT C-spine negative. Laceration approximated with Steri-Strips and skin adhesive. - Diagnoses Provider Diagnoses: Head injury, Facial laceration Discharge ED - Sign-Out/Discharge Documenting (check all that apply): Patient Departure - Discharge Plan Condition: Stable Disposition: HOME Patient Education Materials: Head Injury (ED), Skin Adhesive Care (ED), Facial Laceration (ED) Referrals: Barbara Cordova MD [Primary Care Provider] - Additional Instructions: Leave Steri-Strips on until they fall off, at least 5 days. You may wash gently with warm running water and soap. Do not submerge wounds underwater for 5 days. Return to the ED for any new or worsening symptoms. - Billing Disposition and Condition Condition: STABLE Disposition: Home
[2019-08-01] MEDS: Tetan/Diph/Pertus SYR(Tdap)* 0.5 ML SYR(BOOSTRIX) use SYR contains LATEX IM ONE (20:10)
[2019-08-01 20:17] VITALS: BP 129/86
== END 2019-08-01 20:16 | disposition home or self-care (01) ==
LOC: ED 17:07
DX: S01.111A Laceration without foreign body of right eyelid and periocular area, initial encounter (principal); Z23 Encounter for immunization; R91.1 Solitary pulmonary nodule; W19.XXXA Unspecified fall, initial encounter; Y92.9 Unspecified place or not applicable; E11.9 Type 2 diabetes mellitus without complications; E78.5 Hyperlipidemia, unspecified; D64.9 Anemia, unspecified; I48.91 Unspecified atrial fibrillation; I45.10 Unspecified right bundle-branch block; I50.9 Heart failure, unspecified; I11.0 Hypertensive heart disease with heart failure; F41.9 Anxiety disorder, unspecified; Z85.3 Personal history of malignant neoplasm of breast; Z96.652 Presence of left artificial knee joint; Z87.891 Personal history of nicotine dependence; Z79.01 Long term (current) use of anticoagulants; Z79.84 Long term (current) use of oral hypoglycemic drugs; Z79.899 Other long term (current) drug therapy; Z88.0 Allergy status to penicillin; Z88.1 Allergy status to other antibiotic agents; Z88.2 Allergy status to sulfonamides; Z88.8 Allergy status to other drugs, medicaments and biological substances
CPT/HCPCS: 70450; 72125; 90471; 90715; 99283